=== PATIENT | female | born 1965 | race Caucasian/White ===

== ENCOUNTER → 2017-09-17 | Outpatient (CLI) | payer BC ==
[~2017-09-17] MED LIST: CYMBALTA60 MG PO; ELAVIL; LIPITOR20 MG PO; Z.0.EFFEXOR75 MG; Z.0.PREVACID15 MG
--- NOTE | 2017-09-17 17:17 | Diagnostic Imaging Report ---
PROCEDURE: SOFT TISSUE HEAD/NECK US COMPARISON: None. INDICATIONS:LOCALIZED SWELLING LEFT NECK TECHNIQUE: Transverse and longitudinal graham-scale sonographic images of the neck were obtained. FINDINGS: Right cervical lymph nodes measure up to 0.8 x 1.4 x 1.3 cm. Left cervical lymph nodes measure up to 0.9 x 1.3 x 2.5 cm. The larger lymph nodes do not have fatty briseyda. The thyroid gland was not imaged. Visualized vascular structures are unremarkable. CONCLUSION: Prominent and nonspecific cervical lymph nodes. Recommend further evaluation with CT of the neck. Dictated by: Jay Salomon M.D. on 09/17/2017 at 17:17 Electronically approved by: Jay Salomon M.D. on 09/17/2017 at 17:17
== END ==
LOC: US 16:14
PROVIDERS: ATTEND Family Medicine
DX: R59.0 Localized enlarged lymph nodes (principal); J02.9 Acute pharyngitis, unspecified
CPT/HCPCS: 76536

== ENCOUNTER → 2017-09-18 | Outpatient (CLI) | payer BC ==
[~2017-09-18] MED LIST changes: +IOPAMIDOL 370 MG/ML 200 ML INFUS..BTL INJ ONE; +SODIUM CHLORIDE 0.9% 50ML 50 ML ONE
[2017-09-18 17:26] LABS: BLOOD UREA NITROGEN 14 mg/dL (7-26); BUN/CREATININE RATIO 18 (6-25); CREATININE, SERUM 0.76 mg/dL (0.57-1.11); EST GLOMERULAR FILTRATION RATE > 60 ML/MIN (60-)
--- NOTE | 2017-09-18 22:03 | Diagnostic Imaging Report ---
This study was brought to my attention at 9:25 PM on 09/18/2017. History: Sore throat, neck swelling, prominent lymph nodes seen in prior ultrasound. Comparison studies: None Technique: Axial, coronal and sagittal images from the skull base to the thoracic inlet. Coronal and sagittal images reconstructed from the axial data. Intravenous contrast: 100 cc of Isovue 370. Findings: Soft tissues: Mild soft tissue prominence in bilateral palatine tonsils. No discrete peripheral rim enhancing fluid collection to suggest abscess. Pharyngeal airway is patent. Masses: None. Lymph nodes: Multiple prominent bilateral nonnecrotic, noncalcified level 2 lymph nodes, the largest on the right level 2A measures approximately 2.4 cm in long axis and on the left side level 2A measures approximately 1.9 cm in long axis are likely reactive. Vessels: Arteries and veins are patent. Glands (thyroid, parotid and submandibular): Normal in size and symmetric. No masses. Orbits: No abnormalities. Paranasal sinuses: Clear. Temporal bones: No abnormalities. Skull base and facial bones: Intact. Cervical spine: C3-C4: Severe right foraminal stenosis due to advanced facet and uncovertebral arthrosis. C4-C5: Posterior disc osteophyte complex without canal stenosis. Mild left foraminal stenosis due to facet and uncovertebral arthrosis. C5-C6: Moderate degenerative disc disease. Mild right and moderate left foraminal stenosis due to facet and uncovertebral arthrosis. C6-C7: Mild left foraminal stenosis due to uncovertebral arthrosis. IMPRESSION: 1. Mild soft tissue prominence in bilateral palatine tonsils possibly represents pharyngitis. No discrete abscess. 2. Bilateral prominent level 2 lymph nodes are likely reactive. Consider short-term follow-up imaging after completion of conservative treatment for complete resolution. Findings discussed with ISABEL Calderon by phone at 9:45 PM on 09/18/2017. Signed by: Dr. Jessica Paulson M.D. on 09/18/2017 9:59 PM
== END ==
LOC: CT 16:15
PROVIDERS: ATTEND Family Medicine
DX: R59.0 Localized enlarged lymph nodes (principal)
CPT/HCPCS: 36415; 70491; 82565; 84520; Q9967

== ENCOUNTER → 2018-01-29 | Outpatient (CLI) | payer BC ==
[~2018-01-29] MED LIST changes: -IOPAMIDOL 370 MG/ML 200 ML INFUS..BTL INJ ONE; -SODIUM CHLORIDE 0.9% 50ML 50 ML ONE
--- NOTE | 2018-01-29 10:18 | Diagnostic Imaging Report ---
TECHNIQUE: Magnetic resonance imaging of the RIGHT KNEE was performed WITHOUT injected contrast. HISTORY: Knee pain COMPARISON: None available. FINDINGS: LIGAMENTS AND TENDONS: ACL: Intact PCL: Intact Collateral ligaments: Intact Iliotibial band: Unremarkable Popliteal tendon: Intact Extensor mechanism: Intact JOINT: Menisci: Medial: Degenerative signal with undersurface fraying of the posterior horn. Lateral: Intact Articular Cartilage: Medial Compartment: Partial thickness cartilage loss Lateral Compartment: Partial thickness cartilage loss Patellofemoral Compartment: High-grade cartilage loss with areas of full-thickness fissuring and erosion. Joint Fluid: Small joint effusion and Cohen's cyst. BONE: No focal or infiltrative bone marrow replacing abnormality. No acute fracture. SOFT TISSUES: Otherwise, unremarkable. IMPRESSION: Medial meniscus degeneration with undersurface fraying of the posterior horn. Tricompartmental cartilage loss, patellofemoral compartment predominant. Signed by: Dr. Dharmesh Knutson M.D. on 01/29/2018 10:14 AM
== END ==
LOC: MRI 08:57
PROVIDERS: ATTEND Specialist
DX: S83.221A Peripheral tear of medial meniscus, current injury, right knee, initial encounter (principal)

== ENCOUNTER 2018-02-12 16:00 | Outpatient (RCR) | payer BC | END 2018-02-17 | LOC: PT 16:00 | PROVIDERS: ATTEND Specialist | DX: M17.12 Unilateral primary osteoarthritis, left knee (principal); M25.562 Pain in left knee; M25.662 Stiffness of left knee, not elsewhere classified; R26.2 Difficulty in walking, not elsewhere classified; M62.81 Muscle weakness (generalized) ==

== ENCOUNTER 2018-02-19 09:34 | Emergency (ER) | payer BC ==
[~2018-02-19] VITALS: Ht 167.6 cm; Wt 74.8 kg
[2018-02-19] MEDS ORDERED: HYDROCODONE/APAP 7.5MG-325MG 1 EA TAB PO PRN (10:15)
[2018-02-19] MEDS ORDERED: KETOROLAC TROMETHAMINE 60 MG/2 ML VIAL IM ONE (10:15)
[2018-02-19] MEDS ORDERED: CYCLOBENZAPRINE HCL 10 MG TAB PO ONE (10:15)
--- NOTE | 2018-02-19 10:53 | Diagnostic Imaging Report ---
PROCEDURE: L-SPINE COMPLETE COMPARISON: Lumbar spine radiographs 07/18/11. INDICATIONS: BACK PAIN FINDINGS: The lumbar spine is in anatomic alignment without evidence of fracture, spondylolisthesis, or spondylolysis. Vertebral body heights are maintained. Mild degenerative disc changes at T11-T12 and L5-S1. Mild facet degenerative changes at L4-L5 and L5-S1 and bilateral sacroiliac joints. The paraspinal soft tissues are normal. Phleboliths project over pelvis. CONCLUSION: No acute osseous abnormality. Mild degenerative disc and facet degenerative changes in the lower lumbar spine. Dictated by: TIAN BRIGGS M.D. on 02/19/2018 at 10:58 Electronically approved by: TIAN BRIGGS M.D. on 02/19/2018 at 10:58
== END 2018-02-19 13:13 | disposition home or self-care (01) ==
LOC: ER 09:34
DX: M54.42 Lumbago with sciatica, left side (principal); I10 Essential (primary) hypertension; K21.9 Gastro-esophageal reflux disease without esophagitis; F32.9 Major depressive disorder, single episode, unspecified
CPT/HCPCS: 72110; 99283; J1885

== ENCOUNTER → 2019-06-29 | Outpatient (CLI) | payer BC | LOC: RAD 16:25 | PROVIDERS: ATTEND Surgery Plastic and Reconstructive Surgery | DX: Z01.818 Encounter for other preprocedural examination (principal) | CPT/HCPCS: 93005 ==